=== PATIENT | female | born 1960 | race Caucasian/White ===

== ENCOUNTER → 2017-01-13 | Outpatient (CLI) | payer MEDICARE, MEDICAID ==
[~2017-01-13] MED LIST: CALTRATE 600 +1 TA1 PO; CYMBALTA60 MG PO; DAILY MULTIPLE1 T11 PO; DARVOCET-N 1001 EACH PO; EFFEXOR XR150 MG PO; FISH OIL500 MG PO; FLEXERIL10 MG PO; FLOMAX 0.4MG C0.4 MG PO; FOLIC ACID 1MG T1 MG PO; GABAPENTIN 400400 MG PO; GABAPENTIN800 MG PO; LORTAB 5/500 501 TAB PO; MEDROL 4MG. DOSE4 MG PO; MELOXICAM7.5 MG PO; METHOTREXATE 22.5 MG PO; NORCO1 TAB PO; OMNICEF 300 MG300 MG PO; PRAVASTATIN 40M40 MG PO; TORADOL10 MG PO; VICODIN 5/500 T1 TAB PO; XANAX 1MG TABLET1 MG PO; ZOFRAN 8MG TABLE8 MG PO
[2017-01-13 11:07] LABS: LYMPH # 3.3 K/mm3 (0.7-4.5); LYMPH % 28.1 % (10-50.0)
--- NOTE | 2017-01-13 11:46 | RADIOLOGY REPORT PS360 ---
EXAM: THORACIC SPINE-3V SWIMMERS HISTORY: BACK PAIN COMPARISON: None FINDINGS: Normal alignment. No fracture or dislocation. No lytic or blastic change. No significant degenerative change. The disc spaces are preserved. Minimal hypertrophic changes are present in the endplates at T8 and T9. There is been prior anterior cervical disc fusion in the lower cervical spine IMPRESSION: 1. No acute finding. 2. Postsurgical change of the lower cervical spine and minimal endplate osteophytes in the lower thoracic spine
--- NOTE | 2017-01-13 11:49 | RADIOLOGY REPORT PS360 ---
[id number] VIEWS HISTORY: LT RIB PAIN ORDERING PHYSICIAN: REGINE MCNEIL MD PATIENT AGE: 56 years COMPARISON: None FINDINGS: A frontal view of the chest shows no acute finding. Multiple views of the Left ribs were obtained. No fracture or dislocation. No lytic or blastic change. Prior anterior cervical disc fusion of the lower cervical spine IMPRESSION: Negative RIBS. If pain persists, consider follow-up exam in 7-[address] with 3-D reformats.
--- NOTE | 2017-01-13 11:49 | RADIOLOGY REPORT PS360 ---
KNEE-3 VIEWS-LT HISTORY: LT KNEE PAIN ORDERING PHYSICIAN: REGINE MCNEIL MD PATIENT AGE: 56 years COMPARISON: None FINDINGS: No fracture or dislocation. No lytic or blastic change. Normal mineralization. No significant arthritic changes evident. There is a area of increased density anterior to the distal femur on the lateral view probably related to artifact. IMPRESSION: Negative left Knee
[2017-01-13 12:20] LABS: BUN 12 mg/dL (7-18)
[2017-01-13 13:15] LABS: GFR (ESTIMATED) 46 ML/MIN (59-)
[2017-01-13 16:39] LABS: AMPHETAMINES/METAMPHETAMINES NEGATIVE ng/mL (<1000)
== END ==
LOC: LAB 10:37
PROVIDERS: Emergency Medicine; Surgery
DX: R07.81 Pleurodynia (principal); M54.6 Pain in thoracic spine; M25.562 Pain in left knee; Z79.899 Other long term (current) drug therapy

== ENCOUNTER 2017-01-22 08:08 | Day surgery (SDC) | payer MEDICARE, MEDICAID ==
[~2017-01-22] VITALS: Ht 2717.8 cm; Wt 99.8 kg
--- NOTE | 2017-01-22 09:15 | Operative Note ---
Surgeon/Diagnoses Surgeon/Neurocritical Care Physician(s) Date of procedure: 01/22/17 Surgeon: MD Jewels Mcneil Diagnoses Pre-op diagnosis: Need for screening colonoscopy Post-op diagnosis Need for screening colonoscopy Colon polyps Procedure Procedure Procedure: Flexible sigmoidoscopy with snare polypectomy Indications: LARRY JESUS is a 56 year-old Female with a history of need for screening colonoscopy Findings: Exceedingly poor bowel preparation Adjacent complex pedunculated polyps at 20 cm Procedure Description: After informed consent was obtained, the patient was taken to the endoscopy suite. Monitored anesthesia care ensued after she was transferred to the LEFT lateral decubitus position. Digital rectal exam revealed some minor hemorrhoidal cushions. The colonoscope was placed in position. Very large quantity of feculent material is noted within the rectum. Thickened feculent material informed stool was also seen. Adjacent complex lobulated pedunculated polyps were noted at 20 cm and these were excised by way of snare polypectomy. The decision to forego further advancement was made secondary to exceedingly poor bowel preparation. The colonoscope was carefully removed and the patient was transferred to recovery. EBL (ml): 1 Anesthesia: Monitored anesthesia care Complications: Poor bowel preparation leading to incomplete procedure Specimens: Pedunculated polyps 20 cm Disposition Disposition: Stable to recovery from where she will be discharged home. She will follow-up in one week. Repeat colonoscopy with extended bowel preparation is still necessary and should be done in the very near future (likely between 3-6 months). at [id number]
[2017-01-22 11:27] VITALS: BP 111/81
== END 2017-01-22 09:44 | disposition home or self-care (01) ==
LOC: SDC 08:08
PROVIDERS: Surgery
PROC: 0DBE8ZX Excision of Large Intestine, Via Natural or Artificial Opening Endoscopic, Diagnostic (ICD-10-PCS; principal; 2017-01-22 08:30)
DX: Z12.11 Encounter for screening for malignant neoplasm of colon (principal); K63.5 Polyp of colon